=== PATIENT | male | born 2000 | race Caucasian/White ===

== ENCOUNTER 2022-01-25 09:40 | Emergency (ER) | payer MEDICAID, OTHER ==
[2022-01-25] MEDS ORDERED: LORazepam 2 MG/ML SDV IVPUSH ONE (10:05)
[2022-01-25] MEDS ORDERED: Sodium Chloride 0.9% 1,000 ML IV ONE (10:05)
[2022-01-25] MEDS ORDERED: Sodium Chloride 0.9% 10 ML Syringe FLUSH PRN (10:05)
[2022-01-25 10:36] LABS: ESTIMATED GFR 125 mL/min (>60)
== END 2022-01-25 11:23 | disposition home or self-care (01) ==
LOC: FB.ED 09:40
DX: G40.409 Other generalized epilepsy and epileptic syndromes, not intractable, without status epilepticus (principal)
CPT/HCPCS: 36415; 80053; 80307; 83735; 85025; 93005; 96374; 99284; J2060; J3490; J7030; 99282